=== PATIENT | female | born 1960 | race Caucasian/White ===

== ENCOUNTER 2017-08-27 10:37 | Inpatient (IN) | payer OTHER ==
[2017-08-27] MEDS ORDERED: MIDAZOLAM 1 MG/ML 2 ML INJ ×2 (11:32→15:10)
[2017-08-27] MEDS ORDERED: LIDOCAINE 100 MG SYRINGE (11:32)
[2017-08-27] MEDS ORDERED: PROPOFOL 20 ML (11:32)
[2017-08-27] MEDS ORDERED: GLYCOPYRROLATE 0.4 MG INJ ×2 (11:32→12:31)
[2017-08-27] MEDS ORDERED: ROCURONIUM 50 MG INJ (11:32)
[2017-08-27] MEDS ORDERED: FENTAnyl 50 MCG/ML VIAL ×2 (11:32→13:08)
[2017-08-27] MEDS ORDERED: NEOSTIGMINE 3 MG/3 ML SYRINGE (11:32)
[2017-08-27] MEDS ORDERED: SUCCINYLCHOLINE CHLORIDE 100 MG/5 ML SYG IV (11:33)
[2017-08-27] MEDS ORDERED: KETAMINE 500 MG INJ (12:30)
[2017-08-27] MEDS ORDERED: niCARdipine 50 MG in SOD CHLORIDE 0.9% 480 ML IV (13:00)
[2017-08-27] MEDS ORDERED: ONDANSETRON 4 MG INJ IV (13:00)
[2017-08-27] MEDS ORDERED: METOCLOPRAMIDE 10 MG INJ (13:06)
[2017-08-27] MEDS ORDERED: ONDANSETRON 4 MG INJ (13:06)
[2017-08-27] MEDS ORDERED: LABETALOL HCL 20MG INJ (13:07)
[2017-08-27] MEDS ORDERED: HYDROmorphONE 2 MG/ML SYG (13:31)
[2017-08-27] MEDS ORDERED: DEXAMETHASONE 4 MG/ML 1 ML INJ (13:58)
[2017-08-27] MEDS ORDERED: hydrALAzine 20 MG INJ (14:01)
[2017-08-27] MEDS ORDERED: FENTAnyl 50 MCG/ML VIAL IV ×2 (14:30)
[2017-08-27] MEDS ORDERED: LABETALOL HCL 20MG INJ IV (14:30)
[2017-08-27] MEDS ORDERED: EPHEDrine SULFATE 50 MG/5 ML SYG IV (14:30)
[2017-08-27] MEDS ORDERED: HYDROmorphONE (0.2 MG/ML) 10ML SYG IV ×3 (14:30)
[2017-08-27] MEDS ORDERED: ALBUMIN HUMAN 5% 250 ML IV (14:30)
[2017-08-27] MEDS ORDERED: hydrALAzine 20 MG INJ IV (14:30)
[2017-08-27] MEDS ORDERED: SUGAMMADEX SODIUM 200 MG/2 ML VIAL IV (14:50)
[2017-08-27] MEDS: DEXTROSE 5%-LR 1,000 ML IV ×3 (15:28→22:04)
[2017-08-27] MEDS ORDERED: DIPHENHYDRAMINE 50 MG INJ IV (15:30)
[2017-08-27] MEDS ORDERED: NALOXONE (0.4 MG/ML) INJ IV (15:30)
[2017-08-27] MEDS: CEFAZOLIN 1 GM/50 ML (PMX) 50 ML IVPB ×2 (15:36→22:04)
[2017-08-27] MEDS: GELATIN SIZE 100 SPONGE (15:36)
[2017-08-27] MEDS: LIDOCAINE 1%/EPI 30 ML INJ (15:37)
[2017-08-27] MEDS: THROMBIN 5000 UNIT VIAL (15:37)
[2017-08-27] MEDS: POLYMYXIN/BACITRACIN 1L IRRIG (15:37)
[2017-08-27] MEDS: HYDROmorphONE 0.5 MG/0.5 ML SYG IV ×3 (16:31→22:20)
[2017-08-27] MEDS: ONDANSETRON 4 MG INJ IV (16:34)
[2017-08-27] MEDS: DEXAMETHASONE 4 MG/ML 1 ML INJ IV (17:47)
[2017-08-27] MEDS: HYDROmorphONE 0.2 MG/ML PCA IV (18:36)
[2017-08-28] MEDS: DEXAMETHASONE 4 MG/ML 1 ML INJ IV ×4 (00:47→18:09)
[2017-08-28] MEDS: HYDROmorphONE 0.2 MG/ML PCA IV ×2 (01:43→09:23)
[2017-08-28] MEDS: DEXTROSE 5%-LR 1,000 ML IV ×3 (05:00→18:09)
[2017-08-28 05:06] LABS: WHITE BLOOD COUNT 10.6 10^3/ul (4.8-10.8)
[2017-08-28 05:06] LABS: ABNORMAL IP MESSAGE 1; HEMATOCRIT 30.9 % (37.0-47.0); HEMOGLOBIN 10.3 g/dl (12.0-16.0); MEAN CORPUSCULAR HEMOGLOBIN 30.7 pg (29.0-33.0); MEAN CORPUSCULAR HGB CONC 33.3 g/dl (32.0-37.0); MEAN CORPUSCULAR VOLUME 92.2 fl (82.0-101.0); MEAN PLATELET VOLUME 9.7 fl (7.4-10.4); PLATELET COUNT 274 10^3/UL (140-415); RED BLOOD COUNT 3.35 10^6/ul (4.20-5.40); RED CELL DISTRIBUTION WIDTH 15.7 % (11.5-14.5)
[2017-08-28 05:35] LABS: ALANINE AMINOTRANSFERASE 31 IU/L (13-69); ALBUMIN 3.8 g/dl (3.3-4.9); ALKALINE PHOSPHATASE 71 IU/L (42-121); ANION GAP 14 (8-16); ASPARTATE AMINO TRANSFERASE 26 IU/L (15-46); BLOOD UREA NITROGEN 10 mg/dl (7-20); CALCIUM 8.9 mg/dl (8.4-10.2); CARBON DIOXIDE 25 mmol/L (21-31); CHLORIDE 106 mmol/L (97-110); CREATININE 0.57 mg/dl (0.44-1.00); GLUCOSE 148 mg/dl (70-220); POTASSIUM 4.3 mmol/L (3.5-5.1); SODIUM 141 mmol/L (135-144); TOTAL PROTEIN 6.5 g/dl (6.1-8.1)
[2017-08-28 05:47] LABS: POSITIVE DIFF @See below
[2017-08-28 05:48] LABS: ADD MAN DIFF? YES
[2017-08-28] MEDS: CEFAZOLIN 1 GM/50 ML (PMX) 50 ML IVPB ×2 (06:03→14:12)
[2017-08-28] MEDS: ONDANSETRON 4 MG INJ IV ×2 (06:04→12:42)
[2017-08-28 09:18] LABS: ANISOCYTOSIS 1+ (0-0); BAND NEUTROPHILS #M 0.4 10^3/ul (0.0-0.6); BAND NEUTROPHILS % (M) 4 % (0-4); LYMPHOCYTES #M 0.6 10^3/ul (0.8-2.9); LYMPHOCYTES % (M) 6 % (15-51); MICROCYTOSIS 1+ (0-0); MONOCYTE #M 0.1 10^3/ul (0.3-0.9); MONOCYTES % (M) 1 % (0-11); PLATELET ESTIMATE NORMAL; REACTIVE LYMPHOCYTES #M 0.2 10^3/ul (0.0-0.0); REACTIVE LYMPHOCYTES% (M) 2 % (0-0); SEG NEUT #M 9.3 10^3/ul (1.7-7.5); SEGMENTED NEUTROPHILS (M) % 87 % (39-77); SMUDGE%M 2 % (0-0)
[2017-08-28] MEDS: HYDROmorphONE 0.5 MG/0.5 ML SYG IV (10:50)
[2017-08-28] MEDS ORDERED: CEPASTAT LOZENGE MT (12:30)
[2017-08-28] MEDS: ACETAMINOPHEN 500 MG TAB PO ×2 (14:12→18:15)
[2017-08-29] MEDS: DEXAMETHASONE 4 MG/ML 1 ML INJ IV ×4 (00:15→17:38)
[2017-08-29] MEDS: DEXTROSE 5%-LR 1,000 ML IV ×2 (02:57→05:00)
[2017-08-29 05:03] LABS: ADD MAN DIFF? NO
[2017-08-29 05:06] LABS: ABNORMAL IP MESSAGE 1; BASOPHILS % 0.1 % (0.0-2.0); EOSINOPHILS % 0.1 % (0.0-7.0); HEMATOCRIT 30.3 % (37.0-47.0); LYMPHOCYTES # 0.6 10^3/ul (0.8-2.9); MEAN CORPUSCULAR HEMOGLOBIN 30.6 pg (29.0-33.0); MEAN CORPUSCULAR VOLUME 92.7 fl (82.0-101.0); MEAN PLATELET VOLUME 9.8 fl (7.4-10.4); MONOCYTE # 0.3 10^3/ul (0.3-0.9); MONOCYTES % 2.4 % (0.0-11.0); NEUTROPHIL # 10.9 10^3/ul (1.6-7.5); PLATELET COUNT 266 10^3/UL (140-415); RED BLOOD COUNT 3.27 10^6/ul (4.20-5.40); RED CELL DISTRIBUTION WIDTH 15.9 % (11.5-14.5)
[2017-08-29 05:06] LABS: WHITE BLOOD COUNT 11.8 10^3/ul (4.8-10.8)
[2017-08-29 05:30] LABS: POSITIVE DIFF @See below
[2017-08-29 05:46] LABS: ANION GAP 12 (8-16); BLOOD UREA NITROGEN 9 mg/dl (7-20); CALCIUM 9.3 mg/dl (8.4-10.2); CARBON DIOXIDE 27 mmol/L (21-31); CHLORIDE 105 mmol/L (97-110); CREATININE 0.57 mg/dl (0.44-1.00); GLUCOSE 133 mg/dl (70-220); POTASSIUM 4.2 mmol/L (3.5-5.1); SODIUM 140 mmol/L (135-144)
[2017-08-29] MEDS: HYDROmorphONE 0.2 MG/ML PCA IV (08:13)
[2017-08-29] MEDS: hydrALAzine 20 MG INJ IV (10:08)
[2017-08-29] MEDS: HYDROCODONE/APAP (10/325) TAB PO ×2 (12:07→19:41)
[2017-08-29] MEDS: HYDROmorphONE 1 MG/ML SYG IV ×3 (13:27→20:42)
[2017-08-30] MEDS: HYDROCODONE/APAP (10/325) TAB PO ×6 (00:16→22:07)
[2017-08-30] MEDS: DEXAMETHASONE 4 MG/ML 1 ML INJ IV ×5 (00:16→23:47)
[2017-08-30] MEDS: HYDROmorphONE 1 MG/ML SYG IV ×6 (01:53→23:50)
[2017-08-30] MEDS: hydrALAzine 20 MG INJ IV (02:23)
[2017-08-30] MEDS: ACETAMINOPHEN 500 MG TAB PO (05:21)
[2017-08-30] MEDS: ENALAPRILAT 1.25 MG INJ IV (06:13)
[2017-08-31] MEDS: HYDROCODONE/APAP (10/325) TAB PO ×4 (02:26→19:50)
[2017-08-31] MEDS: HYDROmorphONE 1 MG/ML SYG IV ×2 (05:25→22:08)
[2017-08-31] MEDS: DEXAMETHASONE 4 MG/ML 1 ML INJ IV ×3 (05:25→18:00)
[2017-08-31 16:51] LABS: TROPONIN-I < 0.012 ng/ml (0.00-0.12)
[2017-08-31] MEDS: CARISOPRODOL 350 MG TAB PO (18:45)
[2017-09-01] MEDS: DEXAMETHASONE 4 MG/ML 1 ML INJ IV ×3 (01:17→11:23)
[2017-09-01] MEDS: HYDROCODONE/APAP (10/325) TAB PO ×3 (01:20→11:26)
[2017-09-01] MEDS: HYDROmorphONE 1 MG/ML SYG IV ×2 (02:02→05:14)
[2017-09-01 05:26] LABS: ADD MAN DIFF? NO
[2017-09-01 05:34] LABS: BASOPHILS % 0.1 % (0.0-2.0); HEMATOCRIT 34.7 % (37.0-47.0); HEMOGLOBIN 11.4 g/dl (12.0-16.0); LYMPHOCYTES # 1.5 10^3/ul (0.8-2.9); LYMPHOCYTES % 12.4 % (15.0-51.0); MEAN CORPUSCULAR HEMOGLOBIN 29.9 pg (29.0-33.0); MEAN CORPUSCULAR HGB CONC 32.9 g/dl (32.0-37.0); MEAN CORPUSCULAR VOLUME 91.1 fl (82.0-101.0); MEAN PLATELET VOLUME 9.8 fl (7.4-10.4); MONOCYTE # 0.5 10^3/ul (0.3-0.9); MONOCYTES % 4.2 % (0.0-11.0); NEUTROPHIL # 9.8 10^3/ul (1.6-7.5); NEUTROPHILS % 82.7 % (39.0-77.0); PLATELET COUNT 308 10^3/UL (140-415); RED BLOOD COUNT 3.81 10^6/ul (4.20-5.40); RED CELL DISTRIBUTION WIDTH 15.2 % (11.5-14.5)
[2017-09-01 05:34] LABS: WHITE BLOOD COUNT 11.8 10^3/ul (4.8-10.8)
[2017-09-01 06:06] LABS: ANION GAP 13 (8-16); BLOOD UREA NITROGEN 23 mg/dl (7-20); CALCIUM 9.1 mg/dl (8.4-10.2); CARBON DIOXIDE 30 mmol/L (21-31); CHLORIDE 99 mmol/L (97-110); CREATININE 0.63 mg/dl (0.44-1.00); GLUCOSE 112 mg/dl (70-220); MAGNESIUM 2.1 mg/dl (1.7-2.5); POTASSIUM 3.9 mmol/L (3.5-5.1); SODIUM 138 mmol/L (135-144)
[2017-09-01] MEDS: LISINOPRIL 5 MG TAB PO (11:23)
[2017-09-02] MEDS ORDERED: LOSARTAN 25 MG TAB PO (09:00)
== END 2017-09-01 15:50 | disposition home or self-care (01) | DRG 471 ==
LOC: REC 10:37 → ICU 15:23 → MS1 08-28 17:53
PROC: 0RB30ZZ Excision of Cervical Vertebral Disc, Open Approach (ICD-10-PCS; principal; 2017-08-27 12:30)
PROC: 0RG20K0 Fusion of 2 or more Cervical Vertebral Joints with Nonautologous Tissue Substitute, Anterior Approach, Anterior Column, Open Approach (ICD-10-PCS; 2017-08-27 12:30)
DX: M47.12 Other spondylosis with myelopathy, cervical region (principal); G82.50 Quadriplegia, unspecified; M48.02 Spinal stenosis, cervical region; I10 Essential (primary) hypertension; J02.9 Acute pharyngitis, unspecified
CPT/HCPCS: 72050; 72141; 80048; 80053; 83735; 84484; 85025; 86850; 86900; 86901; 87081; 93005; 93306; 97110; 97116; 97162; 97530